=== PATIENT | female | born 1975 | race Caucasian/White ===

== ENCOUNTER → 2017-03-31 | Outpatient (CLI) | payer OTHER ==
--- NOTE | 2017-04-01 08:41 | Diagnostic Imaging Report ---
Indication: Head trauma, pain Technique: Continuous helical CT scanning of the head was performed without intravenous contrast material. Axial and coronal 5 mm sections were generated. Dose: Total Dose Length Product - DLP [address] Dose Index - CTDIvol(s) 70.38 mGy. Automated exposure control was utilized for dose reduction. Comparison:None. Findings: The ventricular system is normal in size and configuration. There is no shift of midline structures. No abnormal extra-axial fluid collections are noted. There is no evidence of intracerebral bleeding. No other abnormal high or low density areas are noted within the brain. Impression: Normal CT scan of the head without contrast material. The above report is concordant with preliminary reading by [employer] . The CT scanner at [facility] is accredited by the [employer] and the scans are performed using protocols designed to limit radiation exposure to as low as reasonably achievable to attain images of sufficient resolution adequate for diagnostic evaluation.
--- NOTE | 2017-04-01 08:44 | Diagnostic Imaging Report ---
Indication: Facial trauma, pain Technique: Continuous helical scanning was performed through the facial bones without contrast material. Axial and coronal 3 mm slices were generated. Dose: Total Dose Length Product - DLP [address] Dose Index - CTDIvol(s) 28.19 mGy. Automated exposure control was utilized for dose reduction. Findings: There is cheeks swelling on the left with high density continues tissues consistent with hematoma. Left periorbital soft tissue swelling is also noted. The bony facial structures are intact. There is no fracture. There is no evidence of bone destruction. The globes are intact. Demonstrated paranasal sinuses are normal. The remainder the study is unremarkable. Impression: Left periorbital soft tissue swelling. Left cheek hematoma. Otherwise negative. The above report is concordant with preliminary reading by [employer] . The CT scanner at [facility] is accredited by the [employer] and the scans are performed using protocols designed to limit radiation exposure to as low as reasonably achievable to attain images of sufficient resolution adequate for diagnostic evaluation.
--- NOTE | 2017-04-01 08:47 | Diagnostic Imaging Report ---
Indication: Chest trauma, chest pain Technique: CT scan of the chest was performed without intravenous contrast material. Continuous helical scanning was obtained with displayed 5 mm sections in axial and coronal planes. Dose: Total Dose Length Product - DLP [address] Dose Index - CTDIvol(s) 22.06 mGy. Automated exposure control was utilized for dose reduction. Comparison: None Findings: The superior mediastinum is normal. There is no evidence of significant mediastinal adenopathy. The heart is normal in size. The pulmonary jose are normal. The pleural spaces normal. The lungs are unremarkable. The osseous structures are normal. The gallbladder is surgically absent. Impression: Previous cholecystectomy. Otherwise negative. The above report is concordant with preliminary reading by [employer] . The CT scanner at [facility] is accredited by the [employer] and the scans are performed using protocols designed to limit radiation exposure to as low as reasonably achievable to attain images of sufficient resolution adequate for diagnostic evaluation.
--- NOTE | 2017-04-01 08:50 | Diagnostic Imaging Report ---
Indication: Abdominal trauma, pain Technique: Continuous helical scanning was performed without any contrast material from the diaphragms through the pelvis . Axial, sagittal, and coronal images were generated. Dose: Total Dose Length Product - DLP [address] Dose Index - CTDIvol(s) 17.73 mGy. Automated exposure control was utilized for dose reduction. Comparison: None Findings: The liver is normal. There has been a previous cholecystectomy. The spleen is normal. The pancreas is unremarkable. There is an abdominal wall hernia containing only fat. Adrenal glands are normal. The kidneys are unremarkable. Aorta and inferior vena cava are normal caliber. Retroperitoneum is free of adenopathy. There are some metallic densities in the abdomen from previous surgery. The appendix is not definitely identified. The bowel is unremarkable. The bladder is normal. Uterus is absent. Impression: This cholecystectomy. Previous hysterectomy. Ventral hernia containing fat. Otherwise negative. The above report is concordant with preliminary reading by [employer] . The CT scanner at [facility] is accredited by the [employer] and the scans are performed using protocols designed to limit radiation exposure to as low as reasonably achievable to attain images of sufficient resolution adequate for diagnostic evaluation.
== END | disposition home or self-care (01) ==
LOC: CAT 14:01
DX: R10.9 Unspecified abdominal pain (principal); Z90.49 Acquired absence of other specified parts of digestive tract; Z90.710 Acquired absence of both cervix and uterus; K43.9 Ventral hernia without obstruction or gangrene; R07.9 Chest pain, unspecified; R51 Headache; S00.83XA Contusion of other part of head, initial encounter; X58.XXXA Exposure to other specified factors, initial encounter; Y93.9 Activity, unspecified; Y92.9 Unspecified place or not applicable
CPT/HCPCS: 70450; 70486; 71250; 74176